=== PATIENT | female | born 1935 | race Caucasian/White ===

== ENCOUNTER 2016-12-18 08:21 | Day surgery (SDC) ==
[2015-01-15 15:43] VITALS: BMI 25.4
[2016-12-18 09:08] VITALS: TEMP 97.4
[2016-12-18] MEDS ORDERED: VERSED ONE (09:51)
[2016-12-18] MEDS ORDERED: DIPRIVAN 20 ML VIAL IVP ONE (09:51)
[2016-12-18 11:28] VITALS: BP 153/76
--- NOTE | 2016-12-18 14:30 | OP ---
PROCEDURE: COLONOSCOPY TO THE CECUM WITH SNARE POLYPECTOMY. ENDOSCOPIST: Shari BRASWELL M.D. INDICATION: SURVEILLANCE, HISTORY OF POLYPS. INSTRUMENT: [id number]. MEDICATION: PER ANESTHESIA. PROCEDURE: The patient was positioned for colonoscopy. The digital rectal exam was negative. The colonoscope was inserted through the anus and advanced to the cecum. The cecum was identified using the ileocecal valve and the appendiceal orifice as landmarks. The scope was slowly withdrawn through an adequately prepped colon. Four polyps were removed within the cecal pit. The largest was 1 cm in size. These were submitted in the same container. A small polyp in the ascending colon removed using snare cautery. A 1 cm polyp at 60 cm removed using snare cautery. This had more of a serrated appearance. A small polyp at 30 cm removed using snare cautery. Extensive diverticular disease of the left colon. Retroflex exam was otherwise normal. Withdrawal time 15 minutes 17 seconds. PLAN: 1. Review pathology with anticipated repeat colonoscopy in 3 years. CC: DR. EMMETT CHAPA
== END 2016-12-18 11:25 | disposition home or self-care (01) ==
LOC: SURG 08:21
PROVIDERS: ATTEND Internal Medicine Gastroenterology
DX: Z09 Encounter for follow-up examination after completed treatment for conditions other than malignant neoplasm (principal); Z86.010 Personal history of colon polyps; D12.0 Benign neoplasm of cecum; D12.2 Benign neoplasm of ascending colon; D12.4 Benign neoplasm of descending colon; D12.5 Benign neoplasm of sigmoid colon; K57.30 Diverticulosis of large intestine without perforation or abscess without bleeding

== ENCOUNTER 2017-04-28 09:44 | Emergency (ER) ==
[2017-04-28] MEDS ORDERED: DUONEB NEB STA (09:55)
[2017-04-28] MEDS ORDERED: SOLU-MEDROL 125 MG IVP STA (09:55)
[2017-04-28 10:21] VITALS: BP 207/94; TEMP 98.7; BMI 18.4
--- NOTE | 2017-04-28 10:21 | DI ---
EXAM: One-view chest HISTORY: Shortness of breath TECHNIQUE: Single frontal view the chest was obtained. Comparison 01/15/2015. FINDINGS: The heart is mildly enlarged. The pulmonary vasculature appears normal. Questionable infi ltrates are seen in the right lung base. The lungs are otherwise clear. The osseous structures are n ormal. 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 There is stable deformity of the p roximal right humerus. IMPRESSION: Questionable pneumonia seen in the right lung base. An additional lateral view of the est can be obtained for further evaluation if clinically indicated. Mild cardiomegaly.
--- NOTE | 2017-04-28 11:46 | ED.PDOC ---
General ED Provider: Dr. LYNN ST Chief Complaint: Shortness of Air Stated Complaint: shortness of breath Time Seen by Physician: 10:17 Mode of Arrival: Walk-In Information Source: Patient, Family (son) Primary Care Provider: EMMETT DAUGHERTY Nursing and Triage Documentation Reviewed and Agree: Yes Reviewed sepsis parameters & appropriate labs ordered?: Yes System Inflammatory Response Syndrome: Resp >20/Minute Sepsis Protocol: For patient's 13 years and over: Temp is 96.8 and below OR 101 and greater Pulse >90 BPM Resp >20/minute Acutely Altered Mental Status Are patient's symptoms suggestive of a new infection, such as: -Pneumonia -Skin, Soft Tissue -Endocarditis -UTI -Bone, Joint Infection -Implantable Device -Acute Abdominal Infection -Wound Infection -Meningitis -Blood Stream Catheter Infection -Unknown Respiratory Complaint Exam - Respiratory Complaint/Exam Onset/Duration: over night she became acultely sob but cough x 2 days Symptoms Are: Still present Timing: Intermittent Initial Severity: Severe Current Severity: Severe Location: Chest Character: Reports: Non-productive cough, Dry cough Aggravating: Reports: URI Alleviating: Reports: Bronchodilators, Upright position, Spontaneous resolution Associated Signs and Symptoms: Reports: Rapid breathing, Dyspnea, Chills, Wheezing, URI, Nasal congestion. Denies: Fever, Chest pain, Pleuritic chest pain, Hemoptysis, Dizziness, Calf pain, Calf swelling, Edema, Hoarseness, Sinus discomfort, Vomiting, Sore throat, Weight loss, Decreased oral intake, Increased thirst, Increased appetite, Increased urination Related History: Reports: Similar episode (COPD HOME O2 AT NIGHT ) History of Healthcare-Acquired Pneumonia: No Related Surgical History: Reports: None Pulmonary Embolism Risk Factors: Bedrest, Smoking Cardiac Risk Factors: Reports: Smoking, Hypertension Pseudomonas Risk Factors: Reports: Chronic Lung Disease Tuberculosis Risk Factors: Reports: Chronic Resp. Faliure Status Asthmaticus Risk Factors: Reports: Prior ICU admit. Denies: Recent steriods, Rx non-compliance, Recent admissions, Prior Intubation, Neb Treatment <4hr apart Home Oxygen Use: Yes Recent Stress Test: No Recent Echo/LV Function: No Current Antibiotic Use: No Current Asthma Medication Use: No Respiratory Distress: Moderate Inadequate Respiratory Effort: No Dysphagia Present: No Stridor Present: No JVD Present: No Accessory Muscle Use: No Retractions: Nasal Flaring Diminished Breath Sounds: Yes Prolonged Respiration: Expiratory phase Sinus Tenderness: None Grunting Respirations: No Kussmaul Respirations: No Differential Diagnoses: Asthma, Pulmonary Edema, COPD Exacerbation, Pneumonia, Bronchitis, Lower Resp. Infection Non-Traumatic Chest Pain Syncope: EKG Performed Review of Systems - Review Of Systems Constitutional: Reports: Malaise, Weakness, Loss of appetite Eyes: Reports: No symptoms Ears, Nose, Mouth, Throat: Reports: No symptoms Respiratory: Reports: Cough, Short of air, Wheezing Cardiac: Reports: No symptoms GI: Reports: No symptoms : Reports: No symptoms Musculoskeletal: Reports: No symptoms Skin: Reports: No symptoms Neurological: Reports: No symptoms Endocrine: Reports: No symptoms Hematologic/Lymphatic: Reports: No symptoms All Other Systems: Reviewed and Negative Past Medical History - Past Medical History Endocrine: Reports: Hypothyroid, Dyslipidemia Cardiovascular: Reports: Hypertension Respiratory: Reports: None Hematological: Reports: None Gastrointestinal: Reports: None Genitourinary: Reports: None Neuro/Psych: Reports: None Musculoskeletal: Reports: None Cancer: Reports: None Last Menstrual Period: HYSTERECTOMY - Surgical History General Surgical History: Reports: Unknown - Family History Family History: Reports: Unknown - Social History Smoking Status: Current every day smoker, Heavy tobacco smoker Hx Substance Use: No Alcohol Screening: Occasionally - Immunizations Tetanus Shot up to Date: No Physical Exam - Physical Exam Appearance: Ill-appearing Ill-appearing: Moderate Pain Distress: Moderate Eyes: YOUNG, EOMI, Conjunctiva clear ENT: Ears normal, Nose normal, Oropharynx normal Respiratory: Breath sounds diminished, Rhonchi, Wheezes Cardiovascular: RRR, Pulses normal, No rub, No murmur GI/: Soft, Nontender, No masses, Bowel sounds normal, No Organomegaly Musculoskeletal: Normal strength, ROM intact, No edema, No calf tenderness Skin: Warm, Dry, Normal color Neurological: Sensation intact, Motor intact, Reflexes intact, Cranial nerves intact, Alert, Oriented Psychiatric: Affect appropriate, Mood appropriate Critical Care Note - Critical Care Note Total Time (mins): 0 Course - Course Hematology/Chemistry: 04/28/17 09:45 04/28/17 09:45 Orders, Labs, Meds: Lab Review 04/28/17 04/28/17 04/28/17 09:45 09:45 09:45 WBC 4.78 RBC 4.78 Hgb 13.7 Hct 43.3 MCV 90.6 MCH 28.7 MCHC 31.6 L RDW Coeff of Jayda 15.6 H Plt Count 175 Immature Gran % (Auto) 0.2 Neut % (Auto) 71.8 Lymph % (Auto) 14.0 [place] % (Auto) 12.6 H Eos % (Auto) 1.0 Baso % (Auto) 0.4 Immature Gran # (Auto) 0.0 Neut # 3.4 Lymph # 0.7 [place] # 0.6 Eos # 0.1 Baso # 0.0 PT 9.0 L INR 0.90 APTT 25.1 Puncture Site O2 Saturation ABG pH ABG pCO2 ABG pO2 ABG HCO3 ABG Total CO2 ABG Base Excess Joel Test FiO2 % Sodium 123 L Potassium 4.4 Chloride 81 L Carbon Dioxide 33 H Anion Gap 13.4 BUN 5 L Creatinine 0.66 Estimated GFR (MDRD) 86.00 BUN/Creatinine Ratio 7.57 Glucose 107 Calcium 9.5 Total Bilirubin 0.8 AST 25 ALT 18 Alkaline Phosphatase 91 Total Creatine Kinase 68 Troponin I 0.0190 Total Protein 7.4 Albumin 3.5 Globulin 3.9 Albumin/Globulin Ratio 0.90 Influenza A (Rapid) Influenza B (Rapid) 04/28/17 04/28/17 09:51 10:25 WBC RBC Hgb Hct MCV MCH MCHC RDW Coeff of Jayda Plt Count Immature Gran % (Auto) Neut % (Auto) Lymph % (Auto) [place] % (Auto) Eos % (Auto) Baso % (Auto) Immature Gran # (Auto) Neut # Lymph # [place] # Eos # Baso # PT INR APTT Puncture Site Rr O2 Saturation 59.0 L ABG pH 7.367 ABG pCO2 57.7 H ABG pO2 32.0 L* ABG HCO3 33.2 H ABG Total CO2 35 H ABG Base Excess 8 H Joel Test + FiO2 % 21.0 Sodium Potassium Chloride Carbon Dioxide Anion Gap BUN Creatinine Estimated GFR (MDRD) BUN/Creatinine Ratio Glucose Calcium Total Bilirubin AST ALT Alkaline Phosphatase Total Creatine Kinase Troponin I Total Protein Albumin Globulin Albumin/Globulin Ratio Influenza A (Rapid) Negative by naat Influenza B (Rapid) Negative by naat Orders Category Date Time Status ABG DRAW REQUEST DAILY@0600 CARDIO 04/30/17 06:00 Ordered ABG DRAW REQUEST DAILY@0600 CARDIO 05/01/17 06:00 Ordered ABG DRAW REQUEST DAILY@0600 CARDIO 05/02/17 06:00 Ordered ABG DRAW REQUEST DAILY@0600 CARDIO 04/29/17 06:00 Ordered ABG DRAW REQUEST Stat CARDIO 04/28/17 09:52 Completed ABG DRAW REQUEST Stat CARDIO 04/28/17 11:56 Ordered BIPAP Routine CARDIO 04/28/17 09:54 Active EKG-(ED ONLY) Stat CARDIO 04/28/17 09:51 Completed NEBULIZER TREATMENT Stat CARDIO 04/28/17 09:56 Completed ED IV/MEDIPORT/POWERPORT .ONCE EMERGENCY 04/28/17 09:51 Active ABG DAILY@0600 LAB 04/30/17 06:00 Ordered ABG DAILY@0600 LAB 05/01/17 06:00 Ordered ABG DAILY@0600 LAB 05/02/17 06:00 Ordered ABG DAILY@0600 LAB 04/29/17 06:00 Ordered ABG Stat LAB 04/28/17 09:51 Completed ABG Stat LAB 04/28/17 11:56 Ordered BLOOD CULTURE Stat LAB 04/28/17 11:49 Ordered CBC W/ AUTO DIFF Stat LAB 04/28/17 09:45 Completed COMPREHENSIVE METABOLIC PANEL Stat LAB 04/28/17 09:45 Completed CREATINE KINASE Stat LAB 04/28/17 09:45 Completed LACTIC ACID Stat LAB 04/28/17 11:49 Ordered MOLECULAR FLU A/B Stat LAB 04/28/17 10:25 Completed PARTIAL THROMBOPLASTIN TIME Stat LAB 04/28/17 09:45 Completed PROCALCITONIN Stat LAB 04/28/17 Ordered PT WITH INR Stat LAB 04/28/17 09:45 Completed TROPONIN I Stat LAB 04/28/17 09:45 Completed 0.9 % Sodium Chloride [Saline Flush] MEDS 04/28/17 09:51 Active 1 syr IVF PRN PRN Ceftriaxone Sodium [Rocephin] 1 gm MEDS 04/28/17 11:49 Active 0.9 % Sodium Chloride [Sodium Chloride] 50 ml IV ONCE Ipratropium/Albuterol Neb [Duoneb] MEDS 04/28/17 09:55 Discontinued 1 vial NEB ONCE STA Methylprednisolone Sod Succ/Pf [Solu-Medrol 125 mg] MEDS 04/28/17 09:55 Discontinued 125 mg IVP ONCE STA CHEST, 1V AP ONLY Stat RADS 04/28/17 09:51 Completed Medications Generic Name Dose Route Start Last Admin Trade Name Freq PRN Reason Stop Dose Admin Ceftriaxone Sodium 1 gm/ 50 mls @ 75 mls/hr 04/28/17 11:49 Sodium Chloride IV 04/28/17 12:28 ONCE STA Sodium Chloride 1 syr 04/28/17 09:51 04/28/17 10:04 Saline Flush IVF 1 syr PRN PRN Administration To flush IV Discontinued Medications Generic Name Dose Route Start Last Admin Trade Name Brendonq PRN Reason Stop Dose Admin Albuterol/Ipratropium 1 vial 04/28/17 09:55 04/28/17 10:08 Duoneb NEB 04/28/17 09:56 1 vial ONCE STA Administration Methylprednisolone Sodium Succinate 125 mg 04/28/17 09:55 04/28/17 10:04 Solu-Medrol 125 Mg IVP 04/28/17 09:56 125 mg ONCE STA Administration Vital Signs: Temp Pulse Resp BP Pulse Ox 04/28/17 10:17 98.7 F 70 26 H 207/94 H 66 L Departure - Departure Time of Disposition: 12:30 Disposition: TSF SHORT-TRM HOSP Discharge Problem: COPD exacerbation Instructions: COPD (Chronic Obstructive Pulmonary Disease) (ED) Condition: Good Pt referred to PMD for follow-up: Yes Additional Instructions: Please call your Family Physician as soon as possible to schedule a follow-up appointment. Allergies/Adverse Reactions: Allergies aspirin Adverse Reaction (Unverified 04/28/17 10:21) naproxen [From Aleve] Adverse Reaction (Unverified 04/28/17 10:21) Home Medications: Ambulatory Orders Amlodipine Besylate 10 mg PO DAILY 01/15/15 Benazepril/Hydrochlorothiazide [Benazepril-Hctz 20-25 mg Tab] 1 tab PO DAILY Levothyroxine Sodium [Synthroid] 150 mcg PO DAILY 01/15/15 Oxybutynin Chloride [Ditropan] 5 mg PO DAILY 01/15/15 Calcium Carbonate/Vitamin D3 [Calcium 600 + Vit D Tablet] 1 each PO DAILY Docusate Sodium [Colace] 100 mg PO DAILY 12/15/16 Lovastatin 40 mg PO DAILY 12/15/16 Pantoprazole Sodium [Protonix] 40 mg PO DAILY 12/15/16 Solifenacin Succinate [Vesicare] 5 mg PO DAILY 12/15/16 Disposition Discussed With: Patient
[2017-04-28] MEDS ORDERED: ROCEPHIN 1 GM in SODIUM CHLORIDE 50 ML IV STA (11:49)
[2017-04-28] MEDS ORDERED: ROCEPHIN ONE (11:59)
== END 2017-04-28 13:28 | disposition short-term general hospital (02) ==
LOC: ED 09:44
DX: J44.1 Chronic obstructive pulmonary disease with (acute) exacerbation (principal); R06.02 Shortness of breath; I10 Essential (primary) hypertension; E78.5 Hyperlipidemia, unspecified; E03.9 Hypothyroidism, unspecified; F17.210 Nicotine dependence, cigarettes, uncomplicated; Z79.899 Other long term (current) drug therapy; Z99.81 Dependence on supplemental oxygen
CPT/HCPCS: 36415; 80053; 82550; 82803; 83605; 84145; 84484; 85025; 85610; 85730; 87040; 87502; 93005; 93010; 94640; 96365; 96375; 99285

== ENCOUNTER 2017-12-18 10:08 | Outpatient (CLI) ==
--- NOTE | 2017-12-18 11:06 | DEXA ---
EXAM: Bone densitometry. History: Osteoporosis. Findings: Evaluation of the lumbar spine reveals a total bone mineral density of 0.924 grams per centimeter squ ared with T-score of negative 2.1. Evaluation of the left hip reveals a total bone mineral density of 0.682 grams per centimeter squared with T-score of negative 2.6. Evaluation of the right hip reveals a total bone mineral density of 0.683 grams per centimeter square d with T-score of negative 2.6. Impression: 1. Osteopenia of the lumbar spine. 2. Osteoporosis of bilateral hips
== END 2017-12-18 10:09 | disposition home or self-care (01) ==
LOC: RAD 10:08
PROVIDERS: ATTEND Family Medicine
DX: M81.0 Age-related osteoporosis without current pathological fracture (principal)

== ENCOUNTER 2018-06-01 19:34 | Outpatient (CLI) | END 2018-06-01 19:48 | disposition short-term general hospital (02) | LOC: AMBL 19:34 | PROVIDERS: ATTEND Emergency Medicine | DX: R06.03 Acute respiratory distress (principal); I48.91 Unspecified atrial fibrillation; R23.0 Cyanosis; R06.2 Wheezing; Z99.81 Dependence on supplemental oxygen ==

== ENCOUNTER 2018-06-07 12:12 | Inpatient (IN) ==
[2018-06-07 13:17] VITALS: BMI 25.1
[2018-06-07] MEDS ORDERED: COLACE PO PRN (15:13)
[2018-06-07] MEDS ORDERED: PROAIR HFA IH PRN (15:13)
[2018-06-07] MEDS ORDERED: [UNRECOGNIZED DRUG - OTHER] OP PRN (15:13)
[2018-06-07] MEDS ORDERED: PEG OP PRN (15:13)
[2018-06-07] MEDS ORDERED: PROPYLENE GLYCOL OP PRN (15:13)
[2018-06-07] MEDS ORDERED: OCEAN NASAL SPRAY NAS PRN (15:16)
[2018-06-07] MEDS ORDERED: BENADRYL PO PRN (16:14)
--- NOTE | 2018-06-07 16:18 | RS.PTINEVL ---
Subjective - Patient information Date of Evaluation: 06/07/18 Date of Arrival on Unit: 06/07/18 Admitted From:: Facility Transfer (Transferred from [facility] for swing bed.) Diagnosis: CHF Usual Living Arrangement: Alone Living Arrangement Comments: lives alone, has a ramp at home. Son checks on her frequently and helps when needed. Home Environment: House, Ramp Medical History: Hypertension, COPD, CHF, Arthritis Medical History Comments:: CAD, Lupus, afib, hypothyroidism Surgical History: Cholecystectomy, Hysterectomy Surgical History Comments:: femur fx s/p sx, Medications: see chart Subjective Information/ Patient Comments:: pt states that she is feeling better. pt states she feels like [facility] is home, because she knows everyone. pt states she wants to get back to her home. - Level of function Prior to this admission, the patient could do the following:: Independent Selfcare, Independent ADL's, Independent Ambulation Current Level of Function: Partially Dependent Current Equipment Used at Home: 3 wheeled WALKER, STEP IN SHOWER Interventions - Objective Patient Orientation: Person, Place Current Interventions: IV's, Telemetry Range of Motion - ROM Right Upper Extremity AROM: WFL's Left Upper Extremity AROM: WFL's Right Lower Extremity AROM: WFL's Left Lower Extremity AROM: WFL's Muscle Strength - Muscle Strength Right Upper Extremity Strength: Mild Weakness (grossly 4/5) Left Upper Extremity Strength: Mild Weakness (grossly 4/5) Right Lower Extremity Strength: Mild Weakness (hip flex 4-/5, knee flex/ext 4/5 , ankle DF/PF 4/5) Left Lower Extremity Strength: Mild Weakness (hip flex 4-/5, knee flex/ext 4/5, ankle DF/PF 4/5) Sensation - Sensation Right Upper Extremity Sensation: Intact/Normal Left Upper Extremity Sensation: Intact/Normal Right Lower Extremity Sensation: Intact/Normal Left Lower Extremity Sensation: Intact/Normal Palpation Palpation Findings: None/Normal Balance - Sitting Balance and Reactions Static Sitting Balance: Good Dynamic Sitting Balance: Fair - Standing Balance and Reactions Static Standing Balance: Fair Dynamic Standing Balance: Poor Standing Equilibrium Reactions: Delayed Left, Delayed Right Standing Protective Reactions: Delayed Left, Delayed Right Functional Mobility - Bed Mobility Rolling R/L: Supervision Scooting: Supervision Supine to Sit: CGA Sit to Supine: CGA - Transfers Sit to Stand: CGA Stand to Sit: CGA - Safety Awareness Safety Awareness: Fair AMBER INDEX SCORE: 62 Ambulation - Ambulation Assistive Device Used: Rolling Walker (3 wheeled rwx) Orthotic/Prosthetic Device: No Distance: 140ft Assistance needed with Ambulation: CGA Gait Deviations: Forward posture, Short stride, Deviates from path Ambulation Comments: pt with occasional increased lat sway. Requires cues for posture and step length. pt amb with 3 liters of O2. Factors Affecting Ambulation: Decreased Balance, Breathing/O2 Saturation, Weakness, Decreased Safety, Limited Endurance Treatment time - Units charged Gait trainin - Time with patient Length of Evaluation: 18 Total treatment time: 32 Patient Education - Education Patient Education: Home Exercise Program, Education of Plan of Care Teaching Recipient: Patient Teaching Methods: Discussion, Demonstration Comments: discussion regarding POC, demonstration of safety with gait. Assessment - Assessment Problem List:: Decreased level of function, Requires training/education, Decreased safety/Risk of falls, Weakness, Pain limits previous level of function Rehab Potential: Good Further Therapy Indicated?: Yes Candidate for Swing Bed for Therapy Services?: pt is swing bed for therapy. Evaluation Complexity: HISTORY: Medium (CHF, COPD, HTN, OA,), EXAM OF BODY SYSTEMS: Medium (strength, balance, posture, gait), CLINICAL PRESENTATION: Medium (evolving), CLINICAL DECISION MAKING: Medium Short Term Goals GOAL #1: pt demonstrate independence with bed mobility Goal to be met by: 06/10/18 GOAL #2: Transfer sup to/from sit independent Goal to be met by: 06/10/18 GOAL #3: Sit to/from stand SBA Goal to be met by: 06/11/18 GOAL #4: pt amb 150ft with rwx with O2 CGA with no LOB with improved posture. Goal to be met by: 06/11/18 Salvage Worker Goals GOAL #1: Improved dyn stand balance:stand and reach across/away from midline no LOB Goal to be met by: 06/14/18 GOAL #2: pt amb functional household distances with rwx independently no LOB Goal to be met by: 06/14/18 GOAL #3: Improved strength BLE 4+/5 Goal to be met by: 06/14/18 Plan Plan of Care: Therapeutic EX, Therapeutic Activity Other:: gait training Frequency of Treatment: 1-2 X day, as tolerated Duration of Treatment: 1 Week Anticipated Discharge Destination: Home Treatment Diagnosis (ICD 10 Codes): R26.81 balance impaired. M62.81 weakness. R26.2 difficulty walking Has the Physician been added for Co-signature?: Yes
--- NOTE | 2018-06-07 16:28 | RS.OTINEVL ---
Subjective - Patient information Date of Evaluation: 06/07/18 Date of Arrival on Unit: 06/07/18 Admitted From:: Facility Transfer (Transferred from [facility] for swing bed.) Usual Living Arrangement: Alone Living Arrangement Comments: lives alone, has a ramp at home. Son checks on her frequently and helps when needed. Home Environment: House, Ramp Medical History: Hypertension, COPD, CHF, Arthritis Medical History Comments:: CAD, Lupus, afib, hypothyroidism Surgical History: Cholecystectomy, Hysterectomy Surgical History Comments:: femur fx s/p sx, Medications: see chart Subjective Information/ Patient Comments:: "This right arm doesn't move like the other one." "I still drive." "I hope I can get back to driving." - Level of function Prior to this admission, the patient could do the following:: Independent Selfcare, Independent ADL's, Independent Ambulation Abilities prior to this admission: Pt was living at home alone and her son helps her intermittently. Pt is independent with self care. Current Level of Function: Partially Dependent Current Equipment Used at Home: 3 wheeled WALKER, STEP IN SHOWER Pain Assessment - Pain Pain Score: 0 Interventions - Objective Patient Orientation: Person, Place, Situation Current Interventions: Oxygen Interventions - ROM Right Upper Extremity AROM: Moderate limitation Left Upper Extremity AROM: WFL's - Strength Right Upper Extremity Strength: Mild Weakness Left Upper Extremity Strength: Mild Weakness - Sensation Right Upper Extremity Sensation: Intact/Normal Left Upper Extremity Sensation: Intact/Normal Balance - Sitting Balance Static Sitting Balance: Normal Dynamic Sitting Balance: Normal - Standing Balance Static Standing Balance: Fair Dynamic Standing Balance: Fair ADL Skills - Self Feeding Self Feeding: Independent - Grooming Grooming: Supervision - Bathing Bathing UE: Not Tested Bathing LE: Not Tested - Dressing Dressing UE: CGA Dressing LE: CGA - Toilet Management Toileting Management: [facility] Functional Mobility - Bed Mobility Rolling R/L: Independent Scooting: Independent Supine to Sit: Independent Sit to Supine: Independent - Transfers Sit to Stand: [facility] Stand to Sit: [facility] Stand Pivot Transfers: CGA - Ambulation Weight Bearing Status: FWB Assistive Device Used: Rolling Walker Assistance needed with Ambulation: CGA - Safety Awareness Safety Awareness: Fair AMBER INDEX SCORE: 62 Additional Treatment Performed - Additional units charged ADL: 15 - Time with patient Length of Evaluation: 24 Total treatment time: 39 Activities Do you enjoy playing games?: Yes Would you be interested in leaving your room for activities?: Yes Would you enjoy group activities?: Yes Do you have difficulty with your vision?: Yes What types of things do you enjoy doing? Any Hobbies?: Wero Patient Interests:: Reading Books/Magazines, Watching Television, Visiting/ Socializing Patient Education Patient Education: Education of diagnosis, Home Exercise Program, Home Safety, Education of Plan of Care Teaching Recipient: Patient Teaching Methods: Discussion Assessment Problem List:: Decreased level of function, Requires training/education, Decreased safety/Risk of falls, Weakness Rehab Potential: Good Further Therapy Indicated?: Yes Candidate for Swing Bed for Therapy Services?: yes Evaluation Complexity: HISTORY: Medium, EXAM OF BODY SYSTEMS: Medium, CLINICAL DECISION MAKING: Medium Short Term Goals - Goals GOAL 1: Pt to increase activity tolerance to 10 minutes with rest PRN. Goal to be met by: 06/14/18 GOAL 2: To increase dynamic standing balance to Fair+ Goal to be met by: 06/14/18 GOAL 3: Pt to be Mod-I with showering. Goal to be met by: 06/14/18 Prison Goals GOAL 1: Pt to increase activity tolerance to 20 minutes with rest PRN. Goal to be met by: 06/21/18 GOAL 2: To increase dynamic standing balance to Good- Goal to be met by: 06/21/18 GOAL 3: Pt to be independent with self cares. Goal to be met by: 06/21/18 Plan Plan of Care: Therapeutic EX, Neuromuscular Re-Educ, Therapeutic Activity, Self- Care/Home Management Frequency of Treatment: 1-2 X day, as tolerated Duration of Treatment: 2 Weeks Anticipated Discharge Destination: Home Treatment Diagnosis (ICD 10 Codes): M62.81 Muscle weakness Has the Physician been added for Co-signature?: Yes
[2018-06-07] MEDS: MEVACOR PO SCH (20:29)
[2018-06-07] MEDS: OMNICEF PO SCH (20:30)
[2018-06-07] MEDS: MUCINEX PO SCH (20:30)
[2018-06-07] MEDS: SYMBICORT 160-4.5 MCG INHALER IH SCH (20:31)
[2018-06-07] MEDS ORDERED: NON-FORMULARY MEDICATION (Lovastatin [Lovastatin] 40 MG) PO SCH (21:00)
[2018-06-07] MEDS: TYLENOL PO PRN (23:24)
[2018-06-08] MEDS: SYNTHROID PO SCH ×2 (05:53)
[2018-06-08] MEDS: PROTONIX PO SCH (05:54)
[2018-06-08] MEDS ORDERED: BUMEX PO SCH (06:30)
[2018-06-08] MEDS: VESICARE PO SCH (08:54)
[2018-06-08] MEDS: MUCINEX PO SCH ×2 (08:54→21:02)
[2018-06-08] MEDS: CALCIUM 500 + VIT D 200 MG TABLET PO SCH (08:55)
[2018-06-08] MEDS: OMNICEF PO SCH ×2 (08:55→21:00)
[2018-06-08] MEDS: NORVASC PO SCH (08:55)
[2018-06-08] MEDS: SYMBICORT 160-4.5 MCG INHALER IH SCH ×2 (08:56→21:08)
[2018-06-08] MEDS ORDERED: DITROPAN PO SCH (09:00)
[2018-06-08] MEDS ORDERED: NON-FORMULARY MEDICATION (Amlodipine Besylate [Amlodipine Besylate] 10 MG) PO SCH (09:00)
[2018-06-08] MEDS ORDERED: NON-FORMULARY MEDICATION (Levothyroxine Sodium [Synthroid] 150 MCG) PO SCH (09:00)
[2018-06-08] MEDS ORDERED: NON-FORMULARY MEDICATION (Calcium Carbonate/Vitamin D3 [Calcium 600 + Vit D Tablet] 1 EACH PO SCH (09:00)
[2018-06-08] MEDS: SPIRIVA IH SCH (09:05)
[2018-06-08] MEDS ORDERED: LASIX IVP SCH (11:15)
[2018-06-08] MEDS ORDERED: ROCEPHIN 1 GM in SODIUM CHLORIDE 50 ML IV SCH (11:30)
[2018-06-08] MEDS: MEVACOR PO SCH (21:01)
[2018-06-09] MEDS: SYNTHROID PO SCH ×2 (06:15)
[2018-06-09] MEDS: PROTONIX PO SCH (06:15)
[2018-06-09] MEDS: BUMEX PO SCH (06:16)
[2018-06-09] MEDS: VESICARE PO SCH (09:30)
[2018-06-09] MEDS: NORVASC PO SCH (09:30)
[2018-06-09] MEDS: OMNICEF PO SCH ×2 (09:31→21:14)
[2018-06-09] MEDS: CALCIUM 500 + VIT D 200 MG TABLET PO SCH (09:31)
[2018-06-09] MEDS: MUCINEX PO SCH ×2 (09:31→21:14)
[2018-06-09] MEDS: SPIRIVA IH SCH (09:33)
[2018-06-09] MEDS: SYMBICORT 160-4.5 MCG INHALER IH SCH ×2 (09:33→21:13)
[2018-06-09] MEDS: MEVACOR PO SCH (21:14)
[2018-06-10] MEDS: BUMEX PO SCH (06:16)
[2018-06-10] MEDS: SYNTHROID PO SCH ×2 (06:17)
[2018-06-10] MEDS: PROTONIX PO SCH (06:17)
[2018-06-10] MEDS: SPIRIVA IH SCH (08:00)
[2018-06-10] MEDS: SYMBICORT 160-4.5 MCG INHALER IH SCH ×2 (08:01→21:30)
[2018-06-10] MEDS: MUCINEX PO SCH ×2 (08:03→21:30)
[2018-06-10] MEDS: OMNICEF PO SCH (08:03)
[2018-06-10] MEDS: CALCIUM 500 + VIT D 200 MG TABLET PO SCH (08:03)
[2018-06-10] MEDS: VESICARE PO SCH (08:03)
[2018-06-10] MEDS: NORVASC PO SCH (08:06)
[2018-06-10] MEDS: MEVACOR PO SCH (21:30)
[2018-06-10] MEDS: TYLENOL PO PRN (21:33)
[2018-06-11] MEDS: BUMEX PO SCH (05:50)
[2018-06-11] MEDS: PROTONIX PO SCH (05:50)
[2018-06-11] MEDS: SYNTHROID PO SCH ×2 (05:50→05:51)
[2018-06-11] MEDS: CALCIUM 500 + VIT D 200 MG TABLET PO SCH (08:17)
[2018-06-11] MEDS: VESICARE PO SCH (08:17)
[2018-06-11] MEDS: MUCINEX PO SCH ×2 (08:17→21:18)
[2018-06-11] MEDS: NORVASC PO SCH (08:17)
[2018-06-11] MEDS: SYMBICORT 160-4.5 MCG INHALER IH SCH ×2 (08:19→21:18)
[2018-06-11] MEDS: SPIRIVA IH SCH (08:20)
[2018-06-11] MEDS: MEVACOR PO SCH (21:18)
[2018-06-12] MEDS: BUMEX PO SCH (05:40)
[2018-06-12] MEDS: PROTONIX PO SCH (05:40)
[2018-06-12] MEDS: SYNTHROID PO SCH ×2 (05:40)
[2018-06-12] MEDS: SYMBICORT 160-4.5 MCG INHALER IH SCH ×2 (08:57→20:57)
[2018-06-12] MEDS: VESICARE PO SCH (08:57)
[2018-06-12] MEDS: CALCIUM 500 + VIT D 200 MG TABLET PO SCH (08:58)
[2018-06-12] MEDS: MUCINEX PO SCH ×2 (08:58→20:57)
[2018-06-12] MEDS: NORVASC PO SCH (08:58)
[2018-06-12] MEDS: SPIRIVA IH SCH (08:59)
[2018-06-12] MEDS: MEVACOR PO SCH (20:56)
[2018-06-13] MEDS: SYNTHROID PO SCH ×2 (05:54)
[2018-06-13] MEDS: PROTONIX PO SCH (05:54)
[2018-06-13] MEDS: BUMEX PO SCH (05:54)
[2018-06-13] MEDS: SYMBICORT 160-4.5 MCG INHALER IH SCH ×2 (08:17→21:34)
[2018-06-13] MEDS: SPIRIVA IH SCH (08:17)
[2018-06-13] MEDS: VESICARE PO SCH (08:20)
[2018-06-13] MEDS: CALCIUM 500 + VIT D 200 MG TABLET PO SCH (08:20)
[2018-06-13] MEDS: NORVASC PO SCH (08:20)
[2018-06-13] MEDS: MUCINEX PO SCH ×2 (08:21→21:35)
[2018-06-13] MEDS: MEVACOR PO SCH (21:35)
[2018-06-14 05:18] VITALS: BP 94/56; TEMP 97.8
[2018-06-14] MEDS: PROTONIX PO SCH (05:55)
[2018-06-14] MEDS: SYNTHROID PO SCH ×2 (05:55→05:56)
[2018-06-14] MEDS: BUMEX PO SCH (05:55)
[2018-06-14] MEDS: NORVASC PO SCH (08:58)
[2018-06-14] MEDS: CALCIUM 500 + VIT D 200 MG TABLET PO SCH (08:58)
[2018-06-14] MEDS: SPIRIVA IH SCH (08:58)
[2018-06-14] MEDS: VESICARE PO SCH (08:58)
[2018-06-14] MEDS: SYMBICORT 160-4.5 MCG INHALER IH SCH (08:58)
[2018-06-14] MEDS: MUCINEX PO SCH (09:03)
== END 2018-06-14 10:00 | disposition home or self-care (01) | DRG 91 ==
LOC: MEDSURG A 12:12 → MEDSURG B 06-11 16:36
PROVIDERS: ADMIT Family Medicine; ATTEND Family Medicine
DX: R26.9 Unspecified abnormalities of gait and mobility (principal); J96.92 Respiratory failure, unspecified with hypercapnia; J96.91 Respiratory failure, unspecified with hypoxia; I50.33 Acute on chronic diastolic (congestive) heart failure; J44.9 Chronic obstructive pulmonary disease, unspecified; I48.91 Unspecified atrial fibrillation; I10 Essential (primary) hypertension
CPT/HCPCS: 87081; 97802